=== PATIENT | female | born 1995 | race African-American/Black ===

== ENCOUNTER 2021-05-18 18:14 | Emergency (ER) | payer SELFPAY ==
[2021-05-18 18:35] VITALS: BP 123/68; PULSE 74; TEMP 99; BMI 31.6
== END 2021-05-18 19:32 | disposition home or self-care (01) ==
LOC: FER 18:14
DX: S97.81XA Crushing injury of right foot, initial encounter (principal); S97.82XA Crushing injury of left foot, initial encounter; S91.202A Unspecified open wound of left great toe with damage to nail, initial encounter; S91.201A Unspecified open wound of right great toe with damage to nail, initial encounter
CPT/HCPCS: 73660-TC-FY; 73660-TC-LT-FY; 99284-25